=== PATIENT | female | born 1960 | race Caucasian/White ===

== ENCOUNTER 2020-06-13 22:02 | Emergency (ER) | payer SELFPAY ==
[2020-06-13 22:07] VITALS: BP 201/110; PULSE 99; RESP 20; TEMP 36.2; O2SAT 100
--- NOTE | 2020-06-13 22:41 | ED.FEMALEGU ---
HPI - Female Genitourinary General Chief complaint: Urogenital-Female Stated complaint: Uterine Prolapse Time Seen by Provider: 06/13/20 22:24 Source: patient Mode of arrival: ambulatory Limitations: no limitations History of Present Illness HPI Narrative: This patient is a 59 year old female who presents for evaluation of bulging uterus . She noticed 3 weeks ago that something felt like it was bulging from her vagina. She denies any pain, fever, constipation, nausea or vomiting. She denies dysuria but reports frequent urination. She denies vaginal discharge. Related Data Home Medications Medication Instructions Recorded Confirmed lisinopril 20 mg PO DAILY 06/13/20 Allergies Allergy/AdvReac Type Severity Reaction Status Date / Time clonidine Allergy Hives Verified 06/13/20 22:57 latex Allergy Hives Verified 06/13/20 22:57 Review of Systems Review of Systems: All systems reviewed & are unremarkable except as noted in HPI and below Constitutional: Constitutional: Denies chills and Denies fatigue Respiratory: Respiratory: Denies dyspnea Gastrointestinal: Gastrointestinal: Denies abdominal pain, Denies diarrhea, Denies nausea and Denies vomiting Genitourinary: Genitourinary: Reports nocturia, Denies dysuria, Denies urinary incontinence and Denies vaginal discharge [facility] Past Medical History Medical History (Updated 06/14/20 @ 00:00 by Kerrie Huang) Hypertension Surgical History Surgical History (Updated 06/13/20 @ 23:19 by Nathalia Modi MD) No significant past surgical history Social History Social History Gender identity (if verbalized by the patient): Female Exam Const: General: no acute distress and alert Orientation/consciousness: patient oriented x3 HENMT: Head: normocephalic and atraumatic Mouth: Yes Normal oral and palatal mucosa present Eyes: EOM: EOMs intact bilaterally Resp: Effort & Inspection: normal respiratory effort and no retractions Auscultation: clear to auscultation bilaterally Cardio: Rate: regular rate Rhythm: regular rhythm Heart sounds: no murmurs GI: GI Palp: Yes Soft to palpation, No Tenderness to palpation present (GI) and No Guarding due to palpation present (GI) Auscultation: normal bowel sounds : Speculum Exam - Cervix: normal appearance of the cervix and Cervical os closed Bimanual Exam- Adnexa, other: rectocele Course Reevaluation(s) Reevaluation #1: I have discussed with patient that the bulge appears to be a rectocele . It is not significant. I Discussed she will need to follow up with gynecology. Date: 06/13/20 Time: 23:21 Vital Signs Vital signs: Vital Signs Temperature 97.1 F L 06/13/20 22:07 Pulse Rate 99 06/13/20 22:07 Respiratory Rate 20 06/13/20 22:07 Blood Pressure 201/110 H 06/13/20 22:07 Pulse Oximetry 100 06/13/20 22:07 Temperature 98.2 F 06/13/20 22:46 Pulse Rate 83 06/13/20 23:18 Respiratory Rate 20 06/13/20 23:18 Blood Pressure 168/95 H 06/13/20 23:18 Pulse Oximetry 97 06/13/20 23:18 MDM - Female Genitourinary Lab Data Labs: Lab Results 06/13/20 Range/Units 22:43 Urine Color Yellow (Yellow) Urine Appearance Clear (Clear) Urine pH 6.0 (5.0-9.0) Ur Specific [place] 1.017 (1.001-1.035) Urine Protein Negative (Negative) mg/dL Urine Glucose (UA) Negative (Negative) mg/dL Urine Ketones Negative (Negative) mg/dL Ur Blood (Man) 1+ H (Negative) Urine Nitrate Negative (Negative) Urine Bilirubin Negative (Negative) Urine Urobilinogen Negative (<2.0) mg/dL Leukocyte Esterase Rfl Trace H (Negative) THERESA/UL Urine RBC 6-10 H (0-2) /hpf Urine WBC 4-6 H /hpf Ur Squamous Epith Cells Rare (Few) /hpf Urine Mucus Rare /lpf Discharge Plan Discharge Clinical Impression: Urinary tract infection, Rectocele Patient Disposition: Home, Self-Care Condition: Stable Instructions: Antibiotic Form, Urinary Tract
[2020-06-13 22:46] VITALS: BP 157/98; PULSE 84; RESP 16; TEMP 36.8; O2SAT 98
[2020-06-13 23:01] LABS: Add Urine Microscopic? YES; Appearance Urine Clear (Clear); Bilirubin Urine Negative (Negative); Blood Urine 1+ (Negative); Color Urine Yellow (Yellow); Glucose Urine UA Negative (Negative); Ketones Urine Negative (Negative); Leukocyte Esterase Ur Trace LEU/UL (Negative); Mucus Urine Rare /lpf; Nitrate Urine Negative (Negative); Protein Urine Negative (Negative); Specific Grav Ur 1.017 (1.001-1.035); Squamous Epithelial Cell Urine Rare /hpf (Few); Urobilinogen Urine Negative mg/dL (<2.0)
[2020-06-13 23:18] VITALS: BP 168/95; PULSE 83; RESP 20; O2SAT 97
[2020-06-13] MEDS: NITROFURANTOIN MONOHYD MACROCR 100 MG CAP PO (23:19)
== END 2020-06-13 23:38 | disposition home or self-care (01) ==
PROVIDERS: Emergency Provider General Practice
DX: N39.0 Urinary tract infection, site not specified (principal); N81.6 Rectocele; I10 Essential (primary) hypertension
CPT/HCPCS: 81001; 99283; A9270